=== PATIENT | female | born 1990 | race Caucasian/White ===

== ENCOUNTER 2019-07-26 09:15 | Outpatient (RCR) | payer OTHER, BC, SELFPAY ==
[2019-07-26 11:03] LABS: Hemoglobin 11.4 g/dL (12.0-15.0)
[2019-07-26 11:13] LABS: Glucose 1 Hour PP 50gm Dose 158 mg/dL
[2019-07-26 11:55] LABS: HIV 1/2 Ab P24 Ag Result Negative (Negative)
[2019-07-27] MEDS: RHO(D) IMMUNE GLOBULIN 300 MCG SYRINGE IM (12:33)
[2019-07-29 07:36] LABS: Rapid Plasma Reagin Non-Reactive (NonReactive)
== END 2019-10-24 23:59 | disposition home or self-care (01) ==
LOC: ANHLAB 09:15
PROVIDERS: Visit Provider Advanced Practice Midwife
DX: Z36.89 Encounter for other specified antenatal screening (principal); Z29.13 Encounter for prophylactic Rho(D) immune globulin; O36.0990 Maternal care for other rhesus isoimmunization, unspecified trimester, not applicable or unspecified; Z3A.00 Weeks of gestation of pregnancy not specified
CPT/HCPCS: 36415; 82947; 85014; 85018; 86592; 86703; 86850; 86900; 86901; 90384; 96372; G0432; J2790

== ENCOUNTER 2019-08-26 12:53 | Observation (INO) | payer OTHER, BC, SELFPAY ==
[2019-08-26 13:23] VITALS: BP 150/82; PULSE 130
[2019-08-26 13:30] VITALS: BP 130/79; PULSE 129
[2019-08-26 13:45] VITALS: BP 128/79; PULSE 116
[2019-08-26 14:00] VITALS: BP 127/67; PULSE 108
[2019-08-26 14:15] VITALS: BP 123/72; PULSE 111
[2019-08-26 14:31] LABS: Add Urine Microscopic? NO; Appearance Urine Clear (Clear); Bilirubin Urine Negative (Negative); Blood Urine Negative (Negative); Color Urine Yellow (Yellow); Glucose Urine UA Negative (Negative); Ketones Urine Negative (Negative); Leukocyte Esterase Ur Negative LEU/UL (NEGATIVE); Nitrate Urine Negative (Negative); Protein Urine Negative (Negative); Urobilinogen Urine Negative mg/dL (<2.0)
[2019-08-26 15:29] VITALS: BMI 43.4
--- NOTE | 2019-08-26 15:29 | OBADM ---
This patient, Ashley Vincent I, admitted to the OB room OB Post 115 for observation. Patient/family oriented to hospital policies and general routines including ID bracelet, bed and alarms, visiting hours, pain management, procedures, bathroom and other care routines, personal items, smoking policy, room service/diet, and visiting hours. Patient/Family are encouraged to report perceived risks to care and to ask questions if they do not understand what they are told or what they should do.
--- NOTE | 2019-08-26 15:35 | PC.NURSE ---
1509-K.Cecy CNM called, read UA results and informed no contractions noted. Pt states shes only felt a couple cramps since shes been here. Discharge order received. Perform SVE prior to discharge.
--- NOTE | 2019-08-26 15:38 | PC.NURSE ---
1513-SVE was closed and thick
--- NOTE | 2019-09-08 19:06 | P.PNOB_ITS ---
OB - Triage/Final Diagnosis Evaluation Laboratory results: Laboratory Tests 08/26/19 14:21 Urine Color Yellow Urine Appearance Clear Urine pH 7.0 Ur Specific [place] 1.010 Urine Protein Negative Urine Glucose (UA) Negative Urine Ketones Negative Ur Blood (Man) Negative Urine Nitrate Negative Urine Bilirubin Negative Urine Urobilinogen Negative Ur Leukocyte Esterase Negative Final Diagnosis (1) False labor: Code(s): O47.9 - False labor, unspecified Status: Acute
== END 2019-08-26 15:27 | disposition home or self-care (01) ==
PROVIDERS: Advanced Practice Midwife; Admitting Provider Obstetrics & Gynecology; Visit Provider Obstetrics & Gynecology
DX: O47.03 False labor before 37 completed weeks of gestation, third trimester (principal); Z3A.33 33 weeks gestation of pregnancy
CPT/HCPCS: 81003; 87086; 87088; G0378; G0379

== ENCOUNTER 2019-08-29 20:08 | Observation (INO) | payer OTHER, BC, SELFPAY ==
--- NOTE | 2019-08-29 20:08 | PC.NURSE ---
This patient, Ashley Vincent I, admitted to the OB room Labor/Delivery/Recovery 108 for observation. Patient/family oriented to hospital policies and general routines including ID bracelet, bed and alarms, visiting hours, pain management, procedures, bathroom and other care routines, personal items, smoking policy, room service/diet, and visiting hours. Patient/Family are encouraged to report perceived risks to care and to ask questions if they do not understand what they are told or what they should do.
--- NOTE | 2019-08-29 20:30 | PC.NURSE ---
No ferning noted while visualizing slide under microscope.
--- NOTE | 2019-08-29 20:56 | PC.NURSE ---
Dr. Sy notified of patient complaint of possible leaking of fluid. Vaginal discharge collected through speculum exam and applied to slide. No ferning noted when visualized under microscope. FHT reactive and active movement visible. No contractions noted and patient declines any cramping, contractions or abdominal tightening. VSS. Order for discharge received. Patient to follow-up at regular scheduled appointment 08/30/2019 at 0900 with Galina Hernandez CNM.
[2019-08-29 21:03] VITALS: BMI 44.8
[2019-08-29 21:04] VITALS: BP 169/105; PULSE 114; TEMP 36.9
[2019-08-29 21:06] VITALS: BP 125/82; PULSE 116
[2019-08-29 22:01] VITALS: BP 125/82; PULSE 116
--- NOTE | 2019-09-04 07:46 | PM.OBTRLD ---
OB - Triage/Final Diagnosis Visit Information Date of evaluation: 08/29/19 Reason for evaluation: threatened labor
== END 2019-08-29 21:15 | disposition home or self-care (01) ==
PROVIDERS: Admitting Provider Obstetrics & Gynecology; Visit Provider Obstetrics & Gynecology
DX: O47.03 False labor before 37 completed weeks of gestation, third trimester (principal); Z3A.33 33 weeks gestation of pregnancy
CPT/HCPCS: 59025; G0378; G0379

== ENCOUNTER 2019-10-07 00:01 | Inpatient (IN) | payer OTHER, BC, SELFPAY ==
[2019-10-07] VITALS (103 sets, daily range): BP systolic 114–141; BP diastolic 47–81; PULSE 74–122; RESP 18–20; TEMP 36.8–37.3; O2SAT 96–100; BMI 46.6
--- NOTE | 2019-10-07 00:01 | LDADM ---
This patient, Ashley Bosch I, was admitted to Labor/Delivery/Recovery 108 on 10/07/19 at 00:01. Plans for labor, pain management and were discussed with patient. Patient/family oriented to hospital policies and general routines including ID bracelet, bed and alarms, visiting hours, pain management, procedures, bathroom and other care routines, personal items, smoking policy, room service/diet and guest tray routines, security routines, and visiting hours. Patient/Family are encouraged to report perceived risks to care and to ask questions if they do not understand what they are told or what they should do. See OBIX for further documentation.
[2019-10-07] MEDS: DINOPROSTONE 10 MG VAG INSERT VAGINAL (00:54)
[2019-10-07 00:59] LABS: Basophils Absolute Auto 0.1 K/mm3 (0.0-0.1); Basophils Percent Auto 0.4 % (0.2-1.2); Eosinophils Absolute Auto 0.3 K/mm3 (0-0.3); Eosinophils Percent Auto 2.6 % (0-4.4); Hematocrit 35.6 % (37.0-47.0); Hemoglobin 11.5 g/dL (12.0-15.0); Immature Granulocyte Absolute 0.06 K/mm3 (0.00-0.031); Immature Granulocyte Percent A 0.5 % (0-0.5); Lymphocytes Absolute Auto 2.37 K/mm3 (0.9-3.2); Lymphocytes Percent Auto 19.7 % (18.3-44.2); Mean Corpuscular HGB Conc 32.3 g/dl (32-36); Mean Corpuscular Hemoglobin 26.3 pg (26-34); Mean Corpuscular Volume 81.3 fl (80-100); Mean Platelet Volume 9.4 fl (7.4-10.4); Monocytes Absolute Auto 1.1 K/mm3 (0.1-0.6); Monocytes Percent Auto 8.8 % (2.6-8.5); Neutrophils Absolute Auto 8.2 K/mm3 (1.3-6.7); Platelet Count Result 406 k/mm3 (150-375); Red Blood Count 4.38 M/mm3 (4.2-5.4); Red Cell Distribution Width 15.2 % (11.5-14.5)
--- NOTE | 2019-10-07 04:58 | WPDANESEPP ---
Anes - Eval Pre Procedure Procedure: Labor epidural Date/Time: 10/07/19 04:58 Surgeon: Taniya Preop Diagnosis: Labor pain Pre Op Diagnosis: IOL Patient Data Age: 28 Gender: F Height: 1.8 m Weight: 151.8 kg Last Vital Signs Temp 37.1 C 10/07/19 03:00 Pulse 92 10/07/19 03:00 Resp 18 10/07/19 03:00 BP 123/61 10/07/19 03:00 Allergies Allergy/AdvReac Type Severity Reaction Status Date / Time carbinoxamine [From [facility]] Allergy Hives Verified 10/07/19 01:53 pseudoephedrine [From [facility]] Allergy Hives Verified 10/07/19 01:53 sulfamethoxazole Allergy Hives Verified 08/29/19 21:06 [From [facility]] trimethoprim [From [facility]] Allergy Hives Verified 08/29/19 21:06 Home Medications Medication Instructions Recorded Confirmed Type budesonide-formoterol [Symbicort] 2 puff INHALATION Q12H 10/07/19 10/07/19 History cholecalciferol (vitamin D3) 50 mcg PO DAILY 10/07/19 10/07/19 History [Vitamin D3] levothyroxine 137 mcg PO DAILY 10/07/19 10/07/19 History no.144-folic acid 144 mcg PO DAILY 10/07/19 10/07/19 History [] Laboratory Tests 10/07/19 10/07/19 10/07/19 00:46 00:46 00:46 WBC 12.0 K/mm3 H K/mm3 (4.5-10.0) RBC 4.38 M/mm3 M/mm3 (4.2-5.4) Hgb 11.5 g/dL L g/dL (12.0-15.0) Hct 35.6 % L % (37.0-47.0) MCV 81.3 fl fl (80-100) MCH 26.3 pg pg (26-34) MCHC 32.3 g/dl g/dl (32-36) RDW 15.2 % H % (11.5-14.5) Plt Count 406 k/mm3 H k/mm3 (150-375) MPV 9.4 fl fl (7.4-10.4) Immature Gran % (Auto) 0.5 % % (0-0.5) Neut % (Auto) 68.0 % % (45.5-73.1) Lymph % (Auto) 19.7 % % (18.3-44.2) [place] % (Auto) 8.8 % H % (2.6-8.5) Eos % (Auto) 2.6 % % (0-4.4) Baso % (Auto) 0.4 % % (0.2-1.2) Lymph # (Auto) 2.37 K/mm3 K/mm3 (0.9-3.2) [place] # (Auto) 1.1 K/mm3 H K/mm3 (0.1-0.6) Eos # (Auto) 0.3 K/mm3 K/mm3 (0-0.3) Baso # (Auto) 0.1 K/mm3 K/mm3 (0.0-0.1) Abs Immat Gran (auto) 0.06 K/mm3 H K/mm3 (0.00-0.031) Absolute Neuts (auto) 8.2 K/mm3 H K/mm3 (1.3-6.7) Absolute Nucleated RBC 0.0 K/mm3 K/mm3 (0.0-0.012) Nucleated RBC % 0.0 % % (0.0-0.2) RPR Pending Blood Type O Negative Antibody Screen Negative Patient hx anesthesia problems: none Family hx anesthesia problems: none [facility] Past Medical History Medical History (Updated 10/07/19 @ 04:59 by Fidelia Mock CRNA) Hypothyroid Morbid obesity with BMI of 60.0-69.9, adult Family History Family History (Updated 10/07/19 @ 01:20 by Griselda Boudreaux RN) Sibling Asthma Mother Graves disease Social History Social History Smoking status: Never smoker Substance use: never Gender identity (if verbalized by the patient): Female Spiritual care concerns: No Exam Day of Procedure 10/07/19 04:58
[2019-10-07 07:40] LABS: Rapid Plasma Reagin Non-Reactive (NonReactive)
--- NOTE | 2019-10-07 13:34 | P.HP_ITS ---
Obstetrics - Admit Note Admission Note: record reviewed. No pertinent additions to the history and/or any subsequent changes in the physical findings that are not consistent with the expected course of the were found. MIL for BMI over 30. cervadil and now plan high dose pitocin, attempted AROM unsuccessful. SVE /- 2 Additions to the history and/or subsequent changes in the physical findings follow. None.
[2019-10-07] MEDS: OXYTOCIN 30 UNITS/NS 500 ML 30 UNITS/500 ML BAG 6 UNITS IV CONT (14:09)
[2019-10-07] MEDS: LACTATED RINGERS 1,000 ML 125 ML IV CONT ×3 (14:09→20:37)
[2019-10-08] VITALS (40 sets, daily range): BP systolic 110–135; BP diastolic 47–99; PULSE 32–156; RESP 16–18; TEMP 36.3–37.6; O2SAT 79–100
[2019-10-08] MEDS: OXYTOCIN 30 UNITS/NS 500 ML 30 UNITS/500 ML BAG 125 UNITS IV CONT (02:09)
--- NOTE | 2019-10-08 02:10 | PM.OBPRVD ---
OB - Delivery Note Procedure Delivery date: 10/08/19 Intrapartal events: None Induction method: AROM and per pitocin protocol Delivery monitor: external FHT and external uterine Laceration description: Perineal - 2nd Degree Delivery repair: vicryl Specimen: No Estimated blood loss (mL): 265 Anesthesia type: Epidural Disposition: other () Narrative: baby to skin, mother and baby in stable condition [place] Baby Date of : 10/08/19 Time of : 01:46 Weeks of gestation at delivery: 39 Infant gender: Female Weight (pounds): 6 Weight (ounces): 9 presentation: vertex position: Transverse Placenta delivery description: Spontaneous cord vessel description: 3 Vessels, Tight and Clamped/Cut score one minute: 8 score five minutes: 9
[2019-10-08] MEDS: WITCH HAZEL 40 PADS 1 PAD TOPICAL (04:24)
[2019-10-08] MEDS: BENZOCAINE 20% AER SPR (*SP) 56 GM CAN 1 SPRAY TOPICAL (04:24)
[2019-10-08] MEDS: IBUPROFEN 600 MG TABLET PO ×2 (04:27→13:55)
--- NOTE | 2019-10-08 04:38 | OBPPTRN ---
Patient transferred to post room #286 via wheelchair. Support person, Huy, present. Oriented to unit, room, information board, rooming in, admission packet and security measures. Patient verbalizes understanding.
[2019-10-08] MEDS: LEVOTHYROXINE SODIUM 25 MCG TABLET PO (05:58)
[2019-10-08] MEDS: LEVOTHYROXINE SODIUM 112 MCG TABLET PO (05:58)
[2019-10-08] MEDS: CHOLECALCIFEROL 1,000 UNIT TABLET 2000 UNITS PO (07:20)
[2019-10-08] MEDS: MULTIVIT/MIN/PREN/FOL AC/IRON TABLET 1 TAB PO (07:21)
[2019-10-08] MEDS: ACETAMINOPHEN 325 MG TABLET 650 MG PO (07:21)
[2019-10-08] MEDS: DOCUSATE SODIUM 100 MG CAPSULE PO (07:21)
[2019-10-08] MEDS: TETANUS,DIPHTHERIA,AC PERTUSSIS ADULT (0.5 ML) BOOSTRIX IM (13:56)
[2019-10-09] MEDS: ACETAMINOPHEN 325 MG TABLET 650 MG PO (00:59)
[2019-10-09] MEDS: IBUPROFEN 600 MG TABLET PO ×2 (00:59→08:10)
[2019-10-09 05:11] LABS: Hematocrit 30.9 % (37.0-47.0); Hemoglobin 9.7 g/dL (12.0-15.0)
--- NOTE | 2019-10-09 07:21 | PM.OBPNVD ---
OB - PN: Subj Subjective Date/time seen: 10/09/19 07:21 Patient comments: no complaints baby status: doing well [place] feeding status: exclusively breast feeding OB - PN: Obj Data Labs CBC & Chem 7: 10/09/19 04:41 Labs: Laboratory Results - last 24 hr 10/09/19 04:41 Hgb 9.7 L Hct 30.9 L OB - PN A/P Plan day: 1 Plan: routine care Time Spent With Patient Time: Total time spent is greater than 50% in coordination of care (as documented) at patient's floor/unit and/or counseling patient: Review of Systems Review of Systems: All systems reviewed & are unremarkable except as noted in HPI and below Constitutional: Constitutional: Reports as per HPI Cardiovascular: Cardiovascular: Reports as per HPI Exam Const: General: comfortable Resp: Effort & Inspection: normal respiratory effort Psych: Appearance: grossly normal Affect: normal affect Attitude: cooperative
--- NOTE | 2019-10-09 07:22 | P.DS_ITS ---
OB - DS: Summary OB Procedures : None OB Procedures Intrapartum: Spontaneous Vag Delivery OB Procedures: : None Time Spent with Patient Time attestation: Total time spent providing and/or coordinating discharge services: Exam Const: General: comfortable Resp: Effort & Inspection: normal respiratory effort GI: GI Palp: Yes Soft to palpation Psych: Appearance: grossly normal Affect: normal affect Attitude: cooperative Thought content: Yes Normal thought content present DS: Data Data Completed and Pending Labs on day of discharge: Labs from last 24 hours 10/09/19 04:41 Hgb 9.7 L Hct 30.9 L Discharge Plan Discharge Attending physician on discharge: Sam Monahan Discharging Clinician: Shayla Hernandez Patient Disposition: Home, Self-Care Activity: pelvic rest Diet: regular Patient Instructions: Antibiotic Form Stand Alone Forms: General Discharge Information Follow-up/Referrals: Shayla Hernandez, CNM [Certified Nurse Business Analytics Analyst] - Discharge Medications: Continued levothyroxine 137 mcg tablet 137 mcg PO DAILY RF: 0 budesonide-formoterol [Symbicort] 160-4.5 mcg/actuation Hfa Aerosol Inhaler 2 puff INHALATION Q12H RF: 0 400 mcg Tablet,Chewable 144 mcg PO DAILY RF: 0 cholecalciferol (vitamin D3) [Vitamin D3] 50 mcg (2,000 unit) Capsule 50 mcg PO DAILY RF: 0 Date of admission: 10/07/19 00:01 Primary Care Provider: UNKNOWN,DOCTOR Admitting Provider: Sam Monahan Attending physician on admission: Sam Monahan
[2019-10-09 08:00] VITALS: BP 124/87; PULSE 86; RESP 14; TEMP 36.2; O2SAT 100
[2019-10-09] MEDS: MULTIVIT/MIN/PREN/FOL AC/IRON TABLET 1 TAB PO (08:10)
[2019-10-09] MEDS: DOCUSATE SODIUM 100 MG CAPSULE PO (08:10)
[2019-10-09] MEDS: POLYSACCHARIDE IRON COMPLEX 150 MG CAPSULE PO (08:10)
[2019-10-10 10:34] VITALS: BP 128/86; PULSE 98; RESP 16; TEMP 37.1; O2SAT 98
== END 2019-10-09 12:32 | disposition home or self-care (01) | DRG 807 ==
LOC: ANHLDR 00:46 → ANHOB2 10-08 05:11
PROVIDERS: Advanced Practice Midwife; Admitting Provider Obstetrics & Gynecology; Visit Provider Obstetrics & Gynecology
DX: O69.1XX0 Labor and delivery complicated by cord around neck, with compression, not applicable or unspecified (principal); Z37.0 Single live birth; Z3A.39 39 weeks gestation of pregnancy; Z23 Encounter for immunization; O70.1 Second degree perineal laceration during delivery
CPT/HCPCS: 36415; 84112; 85014; 85018; 85025; 86592; 86850; 86900; 86901; 90715; A9270; J2590; J2795; J7120

== ENCOUNTER → 2020-06-08 10:29 | Outpatient (CLI) | payer OTHER, BC, SELFPAY ==
--- NOTE | ~2020-06-08 | US_ITS ---
EXAMINATION: US thyroid DATE: 06/08/2020 11:22 INDICATION: Thyroid nodule. TECHNIQUE: Multiple ultrasound images of the thyroid were obtained. COMPARISON: Ultrasound 01/22/2019, 01/02/2012, 01/05/2014 FINDINGS: The right thyroid lobe measures 6.1 x 1.8 x 1.7 cm. The left thyroid lobe measures 6.4 x 1.7 x 2.2 c m. The thyroid demonstrates diffusely heterogeneous echogenicity, stable from 01/02/2012. Vascularity is normal. No discrete nodule. IMPRESSION: 1. Chronically heterogeneous thyroid, likely chronic lymphocytic (Camilo) thyroiditis. Reviewed, dictated and finalized at location A. M PRESS TENDER IMPRESSION: 1. Chronically heterogeneous thyroid, likely chronic lymphocytic (Camilo) th yroiditis.
== END ==
PROVIDERS: PCP Nurse Practitioner; Visit Provider Nurse Practitioner
DX: E04.1 Nontoxic single thyroid nodule (principal); E03.9 Hypothyroidism, unspecified
CPT/HCPCS: 76536

== ENCOUNTER 2021-03-19 07:07 | Outpatient (RCR) | payer OTHER, BC, SELFPAY ==
[2021-03-19 08:49] LABS: Hematocrit 34.8 % (37.0-47.0); Hemoglobin 11.2 g/dL (12.0-15.0)
[2021-03-19 09:06] LABS: Glucose 1 Hour PP 50gm Dose 157 mg/dL
[2021-03-19 11:04] LABS: Rapid Plasma Reagin Non-Reactive (NonReactive)
[2021-03-22 12:14] LABS: HIV 1/2 Ab P24 Ag Result Negative (Negative)
[2021-03-22] MEDS: RHO(D) IMMUNE GLOBULIN 300 MCG/2 ML SYRINGE IM (16:53)
== END 2021-06-17 23:59 | disposition home or self-care (01) ==
LOC: ANHLAB 07:07
PROVIDERS: PCP Nurse Practitioner; Visit Provider Obstetrics & Gynecology
DX: Z11.4 Encounter for screening for human immunodeficiency virus [HIV] (principal); O36.0190 Maternal care for anti-D [Rh] antibodies, unspecified trimester, not applicable or unspecified; Z3A.00 Weeks of gestation of pregnancy not specified
CPT/HCPCS: 36415; 82947; 85014; 85018; 85461; 86592; 86703; 90384; 96372; G0432; J2790

== ENCOUNTER 2021-04-07 07:33 | Outpatient (CLI) | payer OTHER, BC, SELFPAY ==
--- NOTE | ~2021-04-07 | US_ITS ---
EXAMINATION: US OB limited DATE: 04/07/2021 08:34 INDICATION: Leakage of fluid in third trimester. TECHNIQUE: Real-time ultrasound of the pelvis was performed. COMPARISON: None. FINDINGS: There is a single fetus in vertex presentation. The placenta is posterior, 11.2 cm from the cervix. heart rate is 134 beats per minute (bpm). The amniotic fluid index is 15.9 cm, which is normal. IMPRESSION: 1. Single living fetus in vertex presentation. 2. Normal amniotic fluid index. Reviewed, dictated and finalized at location A.
[2021-04-07 08:01] VITALS: BP 136/74; PULSE 109
[2021-04-07 08:10] VITALS: BP 136/74; PULSE 105
--- NOTE | 2021-04-07 08:41 | PC.NURSE ---
0840- SPoke with Galina Hernandez, RENNY, MACHO normal, ROM plus negative. ORders to discharge to home.
== END 2021-04-07 08:41 | disposition home or self-care (01) ==
LOC: ANHOBOP 07:40 → ANHOBPP 04-12 07:50
PROVIDERS: PCP Nurse Practitioner; Referring Provider Advanced Practice Midwife; Visit Provider Advanced Practice Midwife
DX: O42.90 Premature rupture of membranes, unspecified as to length of time between rupture and onset of labor, unspecified weeks of gestation (principal); Z3A.00 Weeks of gestation of pregnancy not specified
CPT/HCPCS: 59025; 76815; 84112; 99199

== ENCOUNTER 2021-05-17 06:28 | Outpatient (CLI) | payer OTHER, BC, SELFPAY ==
[2021-05-17] VITALS (28 sets, daily range): BP systolic 111–131; BP diastolic 69–79; PULSE 87–124; O2SAT 93–100
[2021-05-17] MEDS: TERBUTALINE SULFATE 1 MG/ML VIAL 0.25 MG SUB-Q (07:12)
--- NOTE | 2021-05-17 07:46 | W.PM.PROC2 ---
Procedure Note - Detailed Date of Procedure 05/17/21 Pre-op Diagnosis External Version, breech presentation, 36 weeks gestation Post-op Diagnosis same Procedure Performed external cephalic version -failed Surgeon Sam Monahan MD Anesthesia none Indications breech presentation Findings the breech presentation was firmly and deeply in the pelvis. position was confirmed with ultrasound. Attempt at external cephalic version was made. Attempted to raise the presenting part out of the pelvis. Could not raise the presenting part. After several times the patient wanted to discontinue the procedure. Description of Procedure IV access was gained. Terbutaline was given. Estimated Blood Loss 0 Drains No Packing No Pathology none sent Complications No immediate complications Condition stable
[2021-05-17] MEDS: RHO(D) IMMUNE GLOBULIN 300 MCG/2 ML SYRINGE IM (08:55)
== END 2021-05-17 09:37 | disposition home or self-care (01) ==
LOC: ANHOBOP 06:31 → ANHOBPP 06:35
PROVIDERS: PCP Nurse Practitioner; Visit Provider Obstetrics & Gynecology
DX: O32.1XX0 Maternal care for breech presentation, not applicable or unspecified (principal); Z3A.00 Weeks of gestation of pregnancy not specified
CPT/HCPCS: 36415; 59412; 85461; 90384; 96372; 99199; J2790; J3105

== ENCOUNTER 2021-05-31 10:05 | Inpatient (IN) | payer OTHER, BC, SELFPAY ==
[2021-05-31] VITALS (61 sets, daily range): BP systolic 78–148; BP diastolic 32–97; PULSE 56–116; RESP 15–18; TEMP 36.2–36.6; O2SAT 92–100; BMI 47.5
--- OUTSIDE RECORDS SUMMARY | 2021-05-31 10:14 | XMS_ITS | Encounter Summary ---
:1990 Author Care Team Providers Name Role Phone Fallon Waggoner Primary Care Provider [phone] Reason for Visit None recorded. Assessment and Plan 1. Maternal obesity complicating , childbirth and the puerperium, antepartum ? non-stress test Discussion Note: None recorded.Patient educational handouts: No information available. Plan of Care Reminders Provider Appointments Surg 06/09/2021 Shayla roca, Post Op 8:45AM CNM ? Well on or around Shayla roca, Woman-est 10/26/2021 CNM Lab None ? ? recorded. Referral None ? ? recorded. Procedures None ? ? recorded. Surgeries None ? ? recorded. Imaging 05/28/2021 [place] Non-stress Test Medications Name Start Date ? ? budesonide-formoterol HFA 160 mcg-4.5 mcg/actuation ae rosol inhaler ? TAKE 2 PUFFS BY MOUTH TWICE A DAY COVID-19 test specimen collection ? TEST DIRECTED TODAY levothyroxine 137 mcg tablet ? ondansetron HCl 4 mg tablet ? TAKE 1 TABLET BY MOUTH EVERY 4 TO 6 HOURS NEEDED Symbicort 80 mcg-4.5 mcg/actuation HFA aerosol inhaler ? INHALE 2 PUFFS INTO THE LUNGS TWICE DAILY Vitamin D ? Medications Administered None recorded. Vitals None recorded. Results
--- OUTSIDE RECORDS SUMMARY | 2021-05-31 10:14 | XMS_ITS | Encounter Summary ---
:1990 Author Care Team Providers Name Role Phone Fallon Waggoner Primary Care Provider [phone] Reason for Visit None recorded. Assessment and Plan 1. Maternal obesity complicating , childbirth and the puerperium, antepartum ? US, obstetric, biophysical profile + non-stress test Discussion Note: None recorded.Patient educational handouts: No information available. Plan of Care Reminders Provider Appointments Surg Post Op 06/09/2021 [facility] Ellie 8:45AM RENNY Hernandez ? Well on or around Shayal Argueta Woman-est 10/26/2021 RENNY Hernandez Lab None ? ? recorded. Referral None ? ? recorded. Procedures None ? ? recorded. Surgeries None ? ? recorded. Imaging US, 05/25/2021 [place] [facility], Biophysical Profile + Non-stress Test Medications Name Start Date ? [...]
--- OUTSIDE RECORDS SUMMARY | 2021-05-31 10:14 | XMS_ITS ---
:1990 Author Care Team Providers Name Role Phone DIEGO CORONEL Primary Care Provider [phone] Allergies Code Code System Name Reaction Severity Status Onset Rondec ? ? Active ? Sulfa (Sulfonamide ? ? Active ? Antibiotics) 93069 RxNorm Sulfamethoxazole ? ? Active ? 67325 RxNorm Trimethoprim ? ? Active ? Medications Name Status Start Date Stop Date ? ? Advair Diskus 100 mcg-50 mcg/dose powder for inhalation Complete d ? 11/23/2018 inhale 1 puff by inhalation route 2 meche es every day in the morning and evening approximately 12 hours apart albuterol sulfate Completed ? 10/30/2020 albuterol sulfate HFA 90 mcg/actuation aerosol inhaler Completed ? 03/19/2021 inhale 2 puff by inhalation route 4 - 6 hours as needed Azo 95 mg tablet Completed ? 10/07/2011 budesonide-formoterol HFA 160 mcg-4.5 mcg/actuation aerosol inha ler Active ? Not available TAKE 2 PUFFS BY MOUTH TWICE A DAY COVID-19 test specimen collection Active ? Not available TEST DIRECTED TODAY Cytotec 200 mcg tablet Completed 12/14/2018 Insert all 4 pills by vaginal route once dicloxacillin 500 mg capsule Completed ? Take 1 capsule every 12 hours by oral route for 10 days. ID NOW COVID-19 Test Kit Completed ? 021 TEST DIRECTED levothyroxine Completed ? 10/30/2020 levothyroxine 137 mcg tablet Active ? Not available levothyroxine 25 mcg tablet Completed ? 11/17 take 1 tablet
--- OUTSIDE RECORDS SUMMARY | 2021-05-31 10:14 | XMS_ITS | Encounter Summary ---
:1990 Author Care Team Providers Name Role Phone Fallon Waggoner Primary Care Provider [phone] Reason for Visit OB visit OB [id number] EDC 06/06/2021 LMP 10/03/2020 Assessment and Plan Assessment Note Patient is _38__weeks . Dis cussed plan. 1. Routine care Discussion Note: None recorded.Patient educational handouts: No information available. Plan of Care Reminders Provider Appointments Surg 06/09/2021 Shayla roca, Post Op 8:45AM CNM ? Well on or around Shayla roca, Woman-est 10/26/2021 CNM Lab None ? ? recorded. Referral None ? ? recorded. Procedures None ? ? recorded. Surgeries None ? ? recorded. Imaging None ? ? recorded. Medications Name Start Date ? ? budesonide-formoterol [...] D ? Medications Administered None recorded. Vitals Height Weight BMI
--- OUTSIDE RECORDS SUMMARY | 2021-05-31 10:14 | XMS_ITS | Encounter Summary ---
:1990 Author Care Team Providers Name Role Phone Fallon Waggoner Primary Care Provider [phone] Reason for Visit None recorded. Assessment and [...] recorded. Surgeries None ? ? recorded. Imaging 05/25/2021 [place] Non-stress Test Medications Name Start Date ? [...]
--- OUTSIDE RECORDS SUMMARY | 2021-05-31 10:14 | XMS_ITS | Encounter Summary ---
:1990 Author Care Team Providers Name Role Phone Fallon Waggoner Primary Care Provider [phone] Reason for Visit None recorded. Assessment and Plan 1. Maternal obesity complicating , childbirth and the puerperium, antepartum ? US, obstetric, biophysical profile + non-stress test Discussion Note: None recorded.Patient educational handouts: No information available. Plan of Care Reminders Provider Appointments Surg Post Op 06/09/2021 [facility] Ellie 8:45AM RENNY Hernandez ? Well on or around Shayla Argueta Woman-est 10/26/2021 RENNY Hernandez Lab None ? ? recorded. Referral None ? ? recorded. Procedures None ? ? recorded. Surgeries None ? ? recorded. Imaging US, 05/28/2021 [place] Obstetric, Biophysical Profile + Non-stress Test Medications [...]
--- OUTSIDE RECORDS SUMMARY | 2021-05-31 10:15 | XMS_ITS | Encounter Summary ---
:1990 Author Care Team Providers Name Role Phone Fallon Waggoner Primary Care Provider [phone] Reason for Visit None recorded. Assessment and Plan None recorded.Discussion Note: None recorded.Patient educational handouts: No information [...] Administered None recorded. Vitals None recorded. Results Lab Results None recorded. Allergies Code Code System Name Reaction Severity Onset Rondec ? ?
--- OUTSIDE RECORDS SUMMARY | 2021-05-31 10:15 | XMS_ITS | Encounter Summary ---
:1990 Author Care Team Providers Name Role Phone Fallon Waggoner Primary Care Provider [phone] Reason for Visit None recorded. Assessment and [...] recorded. Surgeries None ? ? recorded. Imaging 05/21/2021 [place] Non-stress Test Medications Name Start Date ? [...]
--- OUTSIDE RECORDS SUMMARY | 2021-05-31 10:15 | XMS_ITS | Encounter Summary ---
:1990 Author Care Team Providers Name Role Phone Fallon Waggoner Primary Care Provider [phone] Reason for Visit None recorded. Assessment and [...] recorded. Surgeries None ? ? recorded. Imaging 04/23/2021 [place] Non-stress Test Medications Name Start Date ? [...]
--- OUTSIDE RECORDS SUMMARY | 2021-05-31 10:15 | XMS_ITS | Encounter Summary ---
:1990 Author Care Team Providers Name Role Phone Fallon Waggoner Primary Care Provider [phone] Reason for Visit OB visit [id number] EDC 06/06/2021 LMP 10/03/2020 Assessment and Plan Assessment Note Patient is 37___weeks . Dis cussed plan. 1. Routine care [...]
--- OUTSIDE RECORDS SUMMARY | 2021-05-31 10:15 | XMS_ITS | Encounter Summary ---
:1990 Author Care Team Providers Name Role Phone Fallon Waggoner Primary Care Provider [phone] Reason for Visit None recorded. Assessment and Plan 1. Maternal obesity complicating , childbirth and the puerperium, antepartum ? US, obstetric, biophysical profile + non-stress test Discussion Note: None recorded.Patient educational handouts: No information available. Plan of Care Reminders Provider Appointments Surg Post Op 06/09/2021 [facility] Ellie 8:45AM RENNY Hernandez ? Well on or around Shayla Argueta Woman-est 10/26/2021 RENNY Hernandez Lab None ? ? recorded. Referral None ? ? recorded. Procedures None ? ? recorded. Surgeries None ? ? recorded. Imaging US, 04/29/2021 [place] Obstetric, Biophysical Profile + Non-stress Test Medications [...]
--- OUTSIDE RECORDS SUMMARY | 2021-05-31 10:15 | XMS_ITS | Encounter Summary ---
:1990 Author Care Team Providers Name Role Phone Fallon Waggoner Primary Care Provider [phone] Reason for Visit OB visit [id number] Assessment and Plan 1. Routine care Discussion Note: None recorded.Patient [...] Administered None recorded. Vitals Height Weight BMI Blood Pressure 5 ft 9.75 in 345 lbs 49.9 kg/m2 134/84 mm[Hg] Results Lab Results
--- OUTSIDE RECORDS SUMMARY | 2021-05-31 10:15 | XMS_ITS | Encounter Summary ---
:1990 Author Care Team Providers Name Role Phone Fallon Waggoner Primary Care Provider [phone] Reason for Visit None recorded. Assessment and Plan 1. Maternal obesity complicating , childbirth and the puerperium, antepartum ? US, obstetric, biophysical profile + non-stress test Discussion Note: None recorded.Patient educational handouts: No information available. Plan of Care Reminders Provider Appointments Surg Post Op 06/09/2021 [facility] Ellie 8:45AM RENNY Hernandez ? Well on or around Shayla Argueta Woman-est 10/26/2021 RENNY Hernandez Lab None ? ? recorded. Referral None ? ? recorded. Procedures None ? ? recorded. Surgeries None ? ? recorded. Imaging US, 05/07/2021 [place] Obstetric, Biophysical Profile + Non-stress Test Medications [...]
--- OUTSIDE RECORDS SUMMARY | 2021-05-31 10:15 | XMS_ITS | Encounter Summary ---
:1990 Author Care Team Providers Name Role Phone Fallon Waggoner Primary Care Provider [phone] Reason for Visit OB visit OB [id number] EDC 06/06/2021 LMP 10/03/2020 Assessment and Plan Assessment Note Patient is __35_weeks . Dis cussed plan. 1. Routine care [...]
--- OUTSIDE RECORDS SUMMARY | 2021-05-31 10:15 | XMS_ITS | Encounter Summary ---
:1990 Author Care Team Providers Name Role Phone Fallon Waggoner Primary Care Provider [phone] Reason for Visit None recorded. Assessment and Plan 1. Maternal obesity complicating , childbirth and the puerperium, antepartum ? US, obstetric, biophysical profile + non-stress test ? US, obstetric, follow-up Discussion Note: None recorded.Patient educational handouts: No information available. Plan of Care Reminders Provider Appointments Surg Post Op 06/09/2021 [facility] Ellie 8:45AM RENNY Hernandez ? Well on or around Shayla Argueta Woman-est 10/26/2021 RENNY Hernandez Lab None ? ? recorded. Referral None ? ? recorded. Procedures None ? ? recorded. Surgeries None ? ? recorded. Imaging US, 04/23/2021 [place] Obstetric, Biophysical Profile + Non-stress Test ? US, 04/23/2021 [place] Obstetric, Follow-up Medications Name Start Date ? ? budesonide-formoterol HFA 160 mcg-4.5 mcg/actuation ae rosol inhaler ? TAKE 2 PUFFS BY MOUTH TWICE A DAY COVID-19 test specimen collection ? TEST DIRECTED TODA
--- OUTSIDE RECORDS SUMMARY | 2021-05-31 10:15 | XMS_ITS | Encounter Summary ---
:1990 Author Care Team Providers Name Role Phone Fallon Waggoner Primary Care Provider [phone] Reason for Visit None recorded. Assessment and Plan 1. Maternal obesity complicating , childbirth and the puerperium, antepartum ? US, obstetric, follow-up ? US, obstetric, biophysical profile + non-stress test Discussion Note: None recorded.Patient educational handouts: No information available. Plan of Care Reminders Provider Appointments Surg Post Op 06/09/2021 Ellie 8:45AM RENNY Hernandez ? Well on or around Sh[facility] 10/26/2021 RENNY Hernandez Lab None ? ? recorded. Referral None ? ? recorded. Procedures None ? ? recorded. Surgeries None ? ? recorded. Imaging US, 05/21/2021 [place] [facility], Follow-up ? US, 05/21/2021 [facility], Biophysical Profile + Non-stress Test Medications Name Start Date ? ? budesonide-formoterol HFA 160 mcg-4.5 mcg/actuation ae rosol inhaler ? TAKE 2 PUFFS BY MOUTH TWICE A DAY COVID-19 test specimen collection ? TEST DIRECTED TODA
--- OUTSIDE RECORDS SUMMARY | 2021-05-31 10:15 | XMS_ITS | Encounter Summary ---
:1990 Author Care Team Providers Name Role Phone Fallon Waggoner Primary Care Provider [phone] Reason for Visit None recorded. Assessment and [...] recorded. Surgeries None ? ? recorded. Imaging 05/07/2021 [place] Non-stress Test Medications Name Start Date ? [...]
--- OUTSIDE RECORDS SUMMARY | 2021-05-31 10:15 | XMS_ITS | Encounter Summary ---
:1990 Author Care Team Providers Name Role Phone Fallon Waggoner Primary Care Provider [phone] Reason for Visit None recorded. Assessment and Plan 1. Maternal obesity complicating , childbirth and the puerperium, antepartum ? US, obstetric, biophysical profile + non-stress test Discussion Note: None recorded.Patient educational handouts: No information available. Plan of Care Reminders Provider Appointments Surg Post Op 06/09/2021 [facility] Ellie 8:45AM RENNY Hernandez ? Well on or around [facility] 10/26/2021 RENNY Hernandez Lab None ? ? recorded. Referral None ? ? recorded. Procedures None ? ? recorded. Surgeries None ? ? recorded. Imaging US, 05/12/2021 [facility], Biophysical Profile + Non-stress Test Medications [...]
--- OUTSIDE RECORDS SUMMARY | 2021-05-31 10:15 | XMS_ITS | Encounter Summary ---
:1990 Author Care Team Providers Name Role Phone Fallon Waggoner Primary Care Provider [phone] Reason for Visit None recorded. Assessment and [...] recorded. Surgeries None ? ? recorded. Imaging 05/12/2021 [place] Non-stress Test Medications Name Start Date ? [...]
--- OUTSIDE RECORDS SUMMARY | 2021-05-31 10:15 | XMS_ITS | Encounter Summary ---
:1990 Author Care Team Providers Name Role Phone Fallon Waggoner Primary Care Provider [phone] Reason for Visit OB visit OB [id number] EDC 06/06/2021 L[facility] 10/03/2020 Assessment and Plan 1. Hypothyroidism 2. Maternal obesity complicating , childbirth and the puerperium, antepartum Discussion Note: None recorded.Patient educational handouts: No [...]
--- OUTSIDE RECORDS SUMMARY | 2021-05-31 10:15 | XMS_ITS | Encounter Summary ---
:1990 Author Care Team Providers Name Role Phone Fallon Waggoner Primary Care Provider [phone] Reason for Visit OB visit OB [id number] EDC 06/06/2021 LMP Assessment and Plan Assessment Note Patient is __36_weeks . Dis cussed plan. 1. Routine care [...]
--- OUTSIDE RECORDS SUMMARY | 2021-05-31 10:16 | XMS_ITS | Encounter Summary ---
:1990 Author Care Team Providers Name Role Phone Fallon Waggoner Primary Care Provider [phone] Reason for Visit OB visit OB [id number] EDC 06/06/2021 LMP 10/03/2020 Assessment and Plan Assessment Note Patient is _28__weeks . Dis cussed plan. 1. Routine care [...]
--- OUTSIDE RECORDS SUMMARY | 2021-05-31 10:16 | XMS_ITS | Encounter Summary ---
:1990 Author Care Team Providers Name Role Phone Fallon Waggoner Primary Care Provider [phone] Reason for Visit OB visit OB [id number] EDC 06/06/2021 LMP 10/03/2020 Assessment and Plan Assessment Note Patient is _32__weeks . Dis cussed plan. 1. Routine care [...]
--- OUTSIDE RECORDS SUMMARY | 2021-05-31 10:16 | XMS_ITS | Encounter Summary ---
:1990 Author Reason for Visit COVID Vaccine 1st Dose - Pfizer Assessment and Plan 1. Administration of SARS-CoV-2 antigen vaccine ? [employer] COVID-19 V accine (PF) 30 mcg/0.3 mL IM suspension(EUA) Discussion Note: None recorded.Patient educational handouts: No information available. Plan of Care Reminders Provider Appointments None ? ? recorded. Lab None ? ? recorded. Referral None ? ? recorded. Procedures None ? ? recorded. Surgeries None ? ? recorded. Imaging None ? ? recorded. Medications Name Start Date ? ? Antifungal Cream (miconazole) 2 % topical ? APPLY TO THE AFFECTED AREA(S) BY TOPICA L ROUTE 2 TIMES PER DAY IN THEMORNING AND EVENING prior to each feeding, visible residual medication should be removed using oil (eg, olive oil or coconut oil) budesonide-formoterol HFA 160 mcg-4.5 mcg/actuation ae rosol inhaler ? clotrimazole 1 % topical cream ? APPLY EXTERNALLY TO THE AFFECTED AND BERNARDO RROUNDING AREAS TWICE DAILY IN THE MORNING AND IN THE EVENING dicloxacillin 500 mg capsule ? TAKE 1 CAPSULE BY MOUTH EVERY 6 HOURS FOR 14 DAYS levothyroxine 137 mcg tablet ? mupirocin 2 % topical ointment ? APPLY A SMALL AMOUNT TO THE AFFECTED AREA BY TOPICAL ROUTE 3 TIMES PER DAY prior to each feeding, visible residual m
--- OUTSIDE RECORDS SUMMARY | 2021-05-31 10:16 | XMS_ITS | Encounter Summary ---
:1990 Author Care Team Providers Name Role Phone Fallon Waggoner Primary Care Provider [phone] Reason for Visit OB visit OB [id number] EDC 06/06/2021 LMP 10/03/2020 Assessment and Plan Assessment Note Patient is _30__weeks . Dis cussed plan. 1. Routine care [...]
--- OUTSIDE RECORDS SUMMARY | 2021-05-31 10:16 | XMS_ITS ---
:1990 Author Care Team Providers Name Role Phone [facility] Primary Care Provider Unavailable Allergies Code Code System Name Reaction Severity Status Onset NKDA ? Medications Name Status Start Date Stop Date ? ? Antifungal Cream (miconazole) 2 % topical Active ? Not available APPLY TO THE AFFECTED AREA(S) BY TOPICA L ROUTE 2 TIMES PER DAY IN THEMORNING AND EVENING prior to each feeding, visible residual medication should be removed using oil (eg, olive oil or coconut oil) budesonide-formoterol HFA 160 mcg-4.5 Active ? Not available mcg/actuation aerosol inhaler clotrimazole 1 % topical cream Active ? N ot available APPLY EXTERNALLY TO THE AFFECTED AND BERNARDO RROUNDING AREAS TWICE DAILY IN THE MORNING AND IN THE EVENING dicloxacillin 500 mg capsule Active ? Not available TAKE 1 CAPSULE BY MOUTH EVERY 6 HOURS FOR 14 DAYS levothyroxine 137 mcg tablet Active ? Not available mupirocin 2 % topical ointment Active ? N ot available APPLY A SMALL AMOUNT TO THE AFFECTED AREA BY TOPICAL ROUTE 3 TI MES PER DAY prior to each feeding, visible residual medication should be removed using oil (eg, olive oil or coconut oil) Symbicort 80 mcg-4.5 mcg/actuation HFA aerosol inhaler Active ? Not available INHALE 2 PUFFS INTO THE LUNGS TWICE DAILY Problems No Known Problems Procedures None recorded. Results Lab Results Date Name Specimen Result Interpretation Description Value Range Status Address ? 01/20/2021 TSH + Free ?
--- NOTE | 2021-05-31 10:29 | LDADM ---
This patient, Ashley Bosch, was admitted to OB Post 116 on 05/31/21 at 10:05. Plans for labor, pain management and were discussed with patient. Patient/family oriented to hospital policies and general routines including ID bracelet, bed and alarms, visiting hours, pain management, procedures, bathroom and other care routines, personal items, smoking policy, room service/diet and guest tray routines, infant security routines, and visiting hours. Patient/Family are encouraged to report perceived risks to care and to ask questions if they do not understand what they are told or what they should do. See OBIX for further documentation.
[2021-05-31] MEDS: LACTATED RINGERS 1,000 ML 125 ML IV CONT ×2 (11:00→11:49)
--- NOTE | 2021-05-31 11:01 | P.PNAN_ITS ---
Anes - Initial Pre Proc Eval Procedure: Operation Date: 05/31/21 12:00 Proposed Procedures p Section - Sam Monahan MD Date/Time: 05/31/21 11:01 Surgeon: Sam Monahan MD Pre Op Diagnosis: C/Section Patient Data Age: 30 Gender: F Height: 1.83 m Weight: 159 kg Allergies Allergy/AdvReac Type Severity Reaction Status Date / Time carbinoxamine [From [facility]] Allergy Hives Verified 10/07/19 01:53 pseudoephedrine [From [facility]] Allergy Hives Verified 10/07/19 01:53 sulfamethoxazole Allergy Hives Verified 08/29/19 21:06 [From [facility]] trimethoprim [From [facility]] Allergy Hives Verified 08/29/19 21:06 Home Medications Medication Instructions Recorded Confirmed Type 144 mcg PO DAILY 10/07/19 05/31/21 History budesonide-formoterol [Symbicort] 2 puff INHALATION Q12H 10/07/19 05/31/21 History cholecalciferol (vitamin D3) 50 mcg PO DAILY 10/07/19 05/31/21 History [Vitamin D3] levothyroxine 137 mcg PO DAILY 10/07/19 05/31/21 History Patient hx anesthesia problems: none Family hx anesthesia problems: none Results Review: All pre-operative results and documents have been reviewed as part of the pre-operative evaluation. [facility]LY [facility] Past Medical History Medical History Asthma Hypothyroid Family History Family History Sibling Asthma Mother Graves disease Social History Social History Smoking status: Never smoker Substance use: never Gender identity (if verbalized by the patient): Female Spiritual care concerns: No Anes - Eval Final PreProcedure Day of Procedure 05/31/21 11:01 Patient weight: morbidly obese Heart: regular rate and rhythm Lungs: clear to auscultation Airway: Mallampati scale class II Neurological: alert and oriented Last oral intake: >/= 8 hours ASA classification: III Emergent: no Anesthetic plan: proceed Anesthesia type and monitoring: regional spinal and standard monitoring Results Review: All pre-operative results and documents have been reviewed as part of the pre-operative evaluation. Informed Consent: The patient's anesthetic plan and its attendant risks and benefits were discussed with the patient/family/POA. Questions were solicited and answers provided to the satisfaction of the patient/family/POA.
[2021-05-31 11:05] LABS: Basophils Absolute Auto 0.1 K/mm3 (0.0-0.1); Basophils Percent Auto 0.5 % (0.2-1.2); Eosinophils Absolute Auto 0.4 K/mm3 (0-0.3); Eosinophils Percent Auto 3.2 % (0-4.4); Hematocrit 37.7 % (37.0-47.0); Hemoglobin 12.6 g/dL (12.0-15.0); Immature Granulocyte Absolute 0.06 K/mm3 (0.00-0.031); Immature Granulocyte Percent A 0.5 % (0-0.5); Lymphocytes Absolute Auto 2.32 K/mm3 (0.9-3.2); Lymphocytes Percent Auto 18.4 % (18.3-44.2); Mean Corpuscular HGB Conc 33.4 g/dl (32-36); Mean Corpuscular Hemoglobin 27.8 pg (26-34); Mean Corpuscular Volume 83.2 fl (80-100); Mean Platelet Volume 9.3 fl (7.4-10.4); Monocytes Percent Auto 7.5 % (2.6-8.5); Neutrophils Absolute Auto 8.8 K/mm3 (1.3-6.7); Neutrophils Percent Auto 69.9 % (45.5-73.1); Platelet Count Result 370 k/mm3 (150-375); Red Blood Count 4.53 M/mm3 (4.2-5.4); Red Cell Distribution Width 14.1 % (11.5-14.5); White Blood Count 12.6 K/mm3 (4.5-10.0)
--- NOTE | 2021-05-31 11:54 | WPDHPUPDATE1 ---
History and Physical Update Update Date/Time: 05/31/21 11:54 History and Physical has been reviewed, including an updated exam of the patient. There are NO changes in the patient's condition. Risks, benefits, and alternatives have been discussed and questions answered. Patient agrees to proceed with procedure.
--- NOTE | 2021-05-31 11:54 | PM.IMHP ---
H&P: HPI History of Present Illness Date/Time: 05/31/21 11:54 This patient is a 30-year-old multiparous female who presents for delivery at term. She has a in the breech presentation. A external cephalic version failed. She has no complaints. She denies any nausea, vomiting, fever, chills. She denies any loss of fluid, vaginal bleeding, contractions. She reports good movement. Denies any chest pain shortness of breath. Chief Complaint: Term Review of Systems Review of Systems: All systems reviewed & are unremarkable except as noted in HPI and below Constitutional: Constitutional: Denies chills, Denies fatigue, Denies fever(s) and Denies weakness Eyes: Eyes: Denies blurry vision, Denies change in vision, Denies loss of peripheral vision, Denies loss of vision, Denies other visual disturbances and Denies eye pain ENT: Denies vertigo, Denies dizziness, Denies hearing loss, Denies mouth pain, Denies nasal obstruction, Denies neck mass and Denies neck pain Cardiovascular: Cardiovascular: Denies chest pain, Denies diaphoresis, Denies syncope, Denies leg edema and Denies dyspnea Respiratory: Respiratory: Denies chest congestion, Denies cough, Denies hemoptysis, Denies dyspnea and Denies wheezing Gastrointestinal: Gastrointestinal: Denies abdominal pain, Denies constipation, Denies diarrhea, Denies nausea and Denies vomiting Genitourinary: Genitourinary: Denies hematuria, Denies change in libido, Denies nocturia, Denies genital lesions, Denies flank pain and Denies urinary urgency Musculoskeletal: Musculoskeletal: Denies abnormal gait, Denies back pain, Denies myalgias, Denies arthralgias, Denies joint swelling, Denies muscle weakness and Denies neck pain Integumentary/Breasts: Skin/Breast: Denies swelling, Denies breast pain, Denies breast mass, Denies dry skin, Denies nipple discharge, Denies unusual bruising and Denies jaundice Neurologic: Denies Neuro-related abnormal movements, Denies Abnormal speech present, Denies abnormal gait, Denies behavioral changes, Denies confusion, Denies vertigo, Denies dizziness, Denies syncope, Denies loss of vision, Denies memory loss, Denies convulsions and Denies weakness Psychiatric: Psychiatric: Denies abnormal sleep pattern, Denies behavioral changes, Denies change in libido, Denies confusion, Denies depression, Denies anhedonia and Denies memory loss Endocrine: Endocrine: Reports no additional endocrine complaints, Denies change in libido and Denies fatigue Hematologic/Lymphatic: Hematologic/Lymphatic: Reports no additional hematologic/lymphatic complaints Allergic/Immunologic: Allergic/Immunologic: Reports no additional allergic/immunologic complaints and Denies wheezing PMFSH Past Medical History Medical History Asthma Hypothyroid Family History Family History Sibling Asthma Mother Graves disease Social History Social History Smoking status: Never smoker Substance use: never Gender identity (if verbalized by the patient): Female Spiritual care concerns: No Meds Home Medications and Allergies Home Medications Medication Instructions Recorded Confirmed Type 144 mcg PO DAILY 10/07/19 05/31/21 History budesonide-formoterol [Symbicort] 2 puff INHALATION Q12H 10/07/19 05/31/21 History cholecalciferol (vitamin D3) 50 mcg PO DAILY 10/07/19 05/31/21 History [Vitamin D3] levothyroxine 137 mcg PO DAILY 10/07/19 05/31/21 History Allergies Allergy/AdvReac Type Severity Reaction Status Date / Time carbinoxamine [From [facility]] Allergy Hives Verified 10/07/19 01:53 pseudoephedrine [From [facility]] Allergy Hives Verified 10/07/19 01:53 sulfamethoxazole Allergy Hives Verified 08/29/19 21:06 [From Feb] trimethoprim [From ] Allergy Hives Verified 08/17
[2021-05-31] MEDS: ceFAZolin 3 GM/D5W 100 ML 100 ML IVPB (12:05)
--- NOTE | 2021-05-31 12:50 | W.PM.PROC2 ---
Procedure Note - Detailed Date of Procedure 05/31/21 Pre-op Diagnosis C/Section Post-op Diagnosis same Procedure Performed Low-transverse section Surgeon Sam Monahan MD Anesthesia spinal Findings Normal gestational maternal anatomy, average size , normal Apgars. Breech presentation Description of Procedure The patient was taken the operating room. She was prepped and draped in dorsal supine position with a leftward tilt. This was done after spinal anesthetic was applied. A low-transverse skin incision was made and carried down till of the fascia with the knife. The fascial incision was made with the knife. The fascial incision was extended laterally with Ann scissors. The fascia was tented upward superiorly and inferiorly the rectus muscles were dissected off bluntly. The rectus muscles were the midline. The preperitoneal fat and peritoneum were dissected open bluntly at the superior aspect of the rectus muscles. The peritoneal incision was extended superior and inferior with good position of bladder. The uterine incision was made with a scalpel down to the level of the amniotic cavity. The amniotic cavity was entered bluntly. The was delivered breech presentation 1st with reduction of the legs and arms and delivery of the head.. The cord was clamped and cut and the infant was handed off to waiting pediatric staff. Cord bloods were obtained. The placenta was removed manually. The uterus was exteriorized. The uterus was cleared of all clots, debris and membranes. The uterus was closed in 0 Vicryl running lock fashion. An imbricating over a was placed along the incision line as well. The uterus was returned to the abdomen. The gutters were cleared of all clots and debris. The fascia was closed with 0 Vicryl running fashion. The subcutaneous tissue was irrigated pinpoint bleeders were cauterized. The skin was closed with subcuticular absorbable farzad. The skin incision line was covered with glue. The patient tolerated the procedure well. She has taken recovery room in stable condition. Sponge lap and needle counts were correct x2. Estimated Blood Loss 565 Complications No immediate complications Condition stable Disposition PACU
[2021-05-31] MEDS: OXYTOCIN 30 UNITS/NS 500 ML 30 UNITS/500 ML BAG 125 UNITS IV CONT (14:13)
[2021-05-31] MEDS: diphenhydrAMINE HCl INJ 50 MG/ML VIAL 25 MG IV PUSH (15:11)
--- NOTE | 2021-05-31 15:16 | OBPPTRN ---
Patient transferred to post room #283 via stretcher. Support person present. Oriented to unit, room, information board, rooming in, admission packet and security measures. Patient verbalizes understanding.
[2021-05-31] MEDS: DEXTROSE 5%/0.45% SOD CHL 1,000 ML 125 ML IV CONT (18:20)
[2021-05-31] MEDS: IBUPROFEN 600 MG TABLET PO (18:43)
[2021-05-31] MEDS: FLUTICASONE/SALMETEROL 115-21 MCG INHALER 1 PUFF 2 PUFF INHALATION (19:30)
[2021-06-01] MEDS: IBUPROFEN 600 MG TABLET PO ×4 (00:38→20:01)
[2021-06-01] MEDS: DEXTROSE 5%/0.45% SOD CHL 1,000 ML 125 ML IV CONT (02:27)
[2021-06-01 05:00] VITALS: BP 133/69; PULSE 80; RESP 18; TEMP 36.6
[2021-06-01] MEDS: LEVOTHYROXINE SODIUM 25 MCG TABLET PO (05:12)
[2021-06-01] MEDS: LEVOTHYROXINE SODIUM 112 MCG TABLET PO (05:12)
[2021-06-01 05:20] LABS: Basophils Absolute Auto 0.1 K/mm3 (0.0-0.1); Basophils Percent Auto 0.6 % (0.2-1.2); Eosinophils Absolute Auto 0.5 K/mm3 (0-0.3); Eosinophils Percent Auto 3.6 % (0-4.4); Hematocrit 32.4 % (37.0-47.0); Hemoglobin 10.5 g/dL (12.0-15.0); Immature Granulocyte Absolute 0.05 K/mm3 (0.00-0.031); Immature Granulocyte Percent A 0.4 % (0-0.5); Lymphocytes Absolute Auto 2.86 K/mm3 (0.9-3.2); Lymphocytes Percent Auto 22.8 % (18.3-44.2); Mean Corpuscular HGB Conc 32.4 g/dl (32-36); Mean Corpuscular Hemoglobin 27.8 pg (26-34); Mean Corpuscular Volume 85.7 fl (80-100); Mean Platelet Volume 9.5 fl (7.4-10.4); Monocytes Absolute Auto 1.1 K/mm3 (0.1-0.6); Monocytes Percent Auto 8.8 % (2.6-8.5); Neutrophils Percent Auto 63.8 % (45.5-73.1); Platelet Count Result 312 k/mm3 (150-375); Red Blood Count 3.78 M/mm3 (4.2-5.4); Red Cell Distribution Width 14.3 % (11.5-14.5); White Blood Count 12.5 K/mm3 (4.5-10.0)
[2021-06-01 07:05] LABS: Rapid Plasma Reagin Non-Reactive (NonReactive)
--- NOTE | 2021-06-01 07:25 | WPDANLDNPN2 ---
Anes-Prog Note L&D-Neuraxial Date/Time: 06/01/21 07:25 Neuraxial medications: intrathecal PF morphine Opiod-related complaints: none Patient feedback: Patient satisfied with post-operative pain management.
--- NOTE | 2021-06-01 07:25 | WPDANLDPN2 ---
Anes-Prog Note L&D Date/Time: 06/01/21 07:25 Comfortable throughout: section Neuraxial method: spinal Epidural/Spinal procedure site: clean & non-tender Neuro status: Neuro function grossly intact. Cardiovascular status: normal Respiratory status: normal Airway patency: baseline Mental status: baseline Post-Op hydration status: normal Vital Signs: Last Vital Signs Temp 36.6 C 06/01/21 05:00 Pulse 80 06/01/21 05:00 Resp 18 06/01/21 05:00 BP 133/69 06/01/21 05:00 Pulse Ox 98 05/31/21 15:45 Pain score (VAS): 0 I/O: Intake & Output 05/31/21 05/31/21 06/01/21 15:59 23:59 07:59 Intake Total 2100 240 1750 Output Total 025 200 8533 Balance 1353 -260 750 Post-procedural complaints: none Patient feedback: Patient satisfied with anesthetic care.
[2021-06-01 07:50] VITALS: BP 119/62; PULSE 90; RESP 18; TEMP 36.4; O2SAT 97
--- NOTE | 2021-06-01 08:00 | PC.NURSE ---
Consult with pt., mother reports is eagerly feeding with without issue. This is mother?s 2nd child to breastfeed. Requested mother call out next feeding for observation per policy. Reviewed feeding cues, frequencies, duration of feedings, feeding elimination flow sheet, and signs of adequate intake. Demonstrated stimulation techniques to wake for feeding. Reviewed signs of a correct latch, effective nursing and suck swallow ratio. Nipple care reviewed of lanolin after feedings and warm compresses as needed. Instructed feeding should be initiated three hours from start of last feeding or if feeding cues are noted before. Mother voiced understanding of information shared.
[2021-06-01] MEDS: DOCUSATE SODIUM 100 MG CAPSULE PO ×2 (08:06→17:19)
[2021-06-01] MEDS: MULTIVIT/MIN/PREN/FOL AC/IRON TABLET 1 TAB PO (08:06)
--- NOTE | 2021-06-01 09:07 | P.PNOB_ITS ---
OB - PN: Subj Subjective Date/time seen: 06/01/21 09:07 Patient comments: no complaints, pain well controlled, tolerating diet and flatus present OB - PN: Obj Data Labs CBC & Chem 7: 06/01/21 04:30 Labs: Laboratory Results - last 24 hr 05/31/21 05/31/21 05/31/21 10:53 10:53 10:53 WBC 12.6 H RBC 4.53 Hgb 12.6 Hct 37.7 MCV 83.2 MCH 27.8 MCHC 33.4 RDW 14.1 Plt Count 370 MPV 9.3 Immature Gran % (Auto) 0.5 Neut % (Auto) 69.9 Lymph % (Auto) 18.4 [place] % (Auto) 7.5 Eos % (Auto) 3.2 Baso % (Auto) 0.5 Lymph # (Auto) 2.32 [place] # (Auto) 1.0 H Eos # (Auto) 0.4 H Baso # (Auto) 0.1 Abs Immat Gran (auto) 0.06 H Absolute Neuts (auto) 8.8 H Absolute Nucleated RBC 0.0 Nucleated RBC % 0.0 RPR Non-reactive Blood Type O Negative Antibody Screen Negative 06/01/21 04:30 WBC 12.5 H RBC 3.78 L Hgb 10.5 L Hct 32.4 L MCV 85.7 MCH 27.8 MCHC 32.4 RDW 14.3 Plt Count 312 MPV 9.5 Immature Gran % (Auto) 0.4 Neut % (Auto) 63.8 Lymph % (Auto) 22.8 [place] % (Auto) 8.8 H Eos % (Auto) 3.6 Baso % (Auto) 0.6 Lymph # (Auto) 2.86 [place] # (Auto) 1.1 H Eos # (Auto) 0.5 H Baso # (Auto) 0.1 Abs Immat Gran (auto) 0.05 H Absolute Neuts (auto) 8.0 H Absolute Nucleated RBC 0.0 Nucleated RBC % 0.0 RPR Blood Type Antibody Screen OB - PN A/P Plan day: 1 Comments: Post Op LTCS - no problems, routine recovery Time Spent With Patient Time: Total time spent is greater than 50% in coordination of care (as documented) at patient's floor/unit and/or counseling patient: Exam Const: General: cooperative, healthy appearing, comfortable and no acute distress Resp: Auscultation: no crackles, no rales, no rhonchi and no wheezes Cardio: Rhythm: regular rhythm Heart sounds: no click and no murmurs GI: Inspection: non-distended Auscultation: normal bowel sounds Extrem: General: normal to inspection, no pedal edema and no calf tenderness
[2021-06-01] MEDS: FLUTICASONE/SALMETEROL 115-21 MCG INHALER 1 PUFF 2 PUFF INHALATION ×2 (09:25→21:35)
[2021-06-01] MEDS: LORATADINE 10 MG TABLET PO (09:40)
[2021-06-01] MEDS: TRIAMCINOLONE ACET 0.5% OINT 15 GM TUBE 1 APPLIC TOPICAL ×3 (09:40→20:03)
--- NOTE | 2021-06-01 11:30 | PC.NURSE ---
Mother called out for assist with feeding. Infant is able to freely thrust tongue past gum ridge and flange both lips. Skin is intact on both nipples, no redness and bruising noted. Mother has latched deeply/correctly to breast in football positioning. Reviewed feeding cues, frequencies, duration of feedings, feeding elimination flow sheet, and signs of adequate intake. Demonstrated stimulation techniques to wake infant for feeding. Assisted with to breast. Reviewed positioning/alignment football, holding breast in ?C? hold and guided asymmetrical latch on. Reviewed rational for each. Infant nursed eagerly with steady draws and frequent swallowing noted, some pausing noted. Reviewed signs of a correct latch, effective nursing and suck swallow ratio. Suggested mother stimulate while feeding to increase stimulation for milk supply, for increased intake and to assist with maintaining deep latch. was able to maintain latch without discomfort to mother. Demonstrated how to adjust latch more deeply while feeding as needed. Nipple care reviewed of lanolin after feedings, warm compresses as needed. Instructed mother to call out for RN assistance if she is unable to latch for feeding or she has discomfort with nursing. Instructed feeding should be initiated three hours from start of last feeding or if feeding cues are noted before. Mother voiced understanding of information shared.
[2021-06-01 12:14] VITALS: BP 113/63; PULSE 74; RESP 18; TEMP 36.7; O2SAT 97
[2021-06-01] MEDS: ACETAMINOPHEN 325 MG TABLET 650 MG PO ×2 (17:19→23:54)
[2021-06-01 20:00] VITALS: BP 139/82; PULSE 92; RESP 16; TEMP 36.8
[2021-06-02] MEDS: IBUPROFEN 600 MG TABLET PO ×3 (01:33→15:58)
[2021-06-02] MEDS: HYDROcodone/acetaminophen (*CRX) 5-325 MG TABLET 1 TAB PO ×4 (04:36→15:57)
[2021-06-02] MEDS: LEVOTHYROXINE SODIUM 25 MCG TABLET PO (05:10)
[2021-06-02] MEDS: LEVOTHYROXINE SODIUM 112 MCG TABLET PO (05:11)
--- NOTE | 2021-06-02 07:43 | PM.OBPNVD ---
OB - PN: Subj Subjective Date/time seen: 06/02/21 07:43 Patient comments: no complaints baby status: doing well OB - PN: Obj Data Labs CBC & Chem 7: 06/01/21 04:30 OB - PN A/P Plan day: 2 Plan: routine care and discharge home Time Spent With Patient Time: Total time spent is greater than 50% in coordination of care (as documented) at patient's floor/unit and/or counseling patient: Review of Systems Review of Systems: All systems reviewed & are unremarkable except as noted in HPI and below Exam Const: General: cooperative, healthy appearing and comfortable
[2021-06-02 08:00] VITALS: BP 135/62; PULSE 84; RESP 18; TEMP 36.8
[2021-06-02] MEDS: SIMETHICONE 80 MG TAB.CHEW PO (08:48)
[2021-06-02] MEDS: DOCUSATE SODIUM 100 MG CAPSULE PO (08:49)
[2021-06-02] MEDS: LORATADINE 10 MG TABLET PO (08:49)
[2021-06-02] MEDS: MULTIVIT/MIN/PREN/FOL AC/IRON TABLET 1 TAB PO (08:49)
--- NOTE | 2021-06-02 10:15 | PC.NURSE ---
Consult with pt., observed mother is able to independently latch with appropriate positioning/alignment. Infant eagerly latches on first attempt with long rhythmical draws and frequent swallowing noted. She denies any nipple discomfort, is feeding as required and waking infant to feed if needed. Infant has had at least 8 effective feedings in the past 24 hours, and is currently meeting outcomes for weight, output, jaundice and feeding frequencies. Mother feels her milk is in, is sleeping well between feedings with less fussiness. Mother states she feels confident to continue effective at home. Reviewed transition to breast milk, signs of adequate intake, and engorgement/relief. Instructed to call ICP if intake/output less than required. Reviewed regular medications mother is taking. Information provided per Mattie. Reviewed community resources on the [facility] website and in the Mom/Baby guide. Information on outpatient services provided. Mother has no further questions at this time. Instructed feeding should be initiated three hours from start of last feeding or if feeding cues are noted before until seen by ICP. Mother voiced understanding of information shared.
--- NOTE | 2021-06-02 10:32 | PC.NURSE ---
Self care and infant care discharge instructions given including follow up visit date and time. Mother verbalized understanding. No questions or concerns voiced. Very pleasant and cooperative. FOB at side.
[2021-06-02] MEDS: FLUTICASONE/SALMETEROL 115-21 MCG INHALER 1 PUFF 2 PUFF INHALATION (10:42)
[2021-06-04 10:13] VITALS: BP 124/72; PULSE 81; RESP 20; TEMP 37.1; O2SAT 100
--- NOTE | 2021-07-11 17:09 | PM.OBDSVD ---
DS: Admitting Diagnosis Discharge Date 06/02/21 Admitting Diagnosis term , breech presentation DS: Discharge Diagnosis Discharge Diagnosis (1) delivery delivered: Code(s): O82 - Encounter for delivery without indication Status: Acute OB - DS: Summary OB Procedures : Ultrasound OB Procedures Intrapartum: OB Procedures: : None Peripartum Data Procedures: Procedures Operation Date: 05/31/21 12:00 Actual Procedure Side Surgeon p Section Sam Monahan MD Time Spent with Patient Time attestation: Total time spent providing and/or coordinating discharge services: Discharge Plan Discharge Attending physician on discharge: Sam Monahan Consulting providers: Shayla Hernandez ; Artemio Hutchison Discharging Clinician: Shayla Hernandez Patient Disposition: Home, Self-Care Activity: pelvic rest Diet: regular Discharge Instructions: Education: Mom and Baby Guide Given to: Mother Follow-Up: Call your delivering provider's office for an appointment to be seen in: 1 Week Mom and baby should come to the [facility] for the follow-up appointment. Appointment Date/Time: Friday, June 04, 2021 at 10:00 am What to expect at your follow-up visit: Blood Pressure Check Physical Assessment Call [phone] if you are unable to keep your appointment time. BREAST CARE: * Wear a snug supportive bra. * For engorgement discomfort: Breast Feeding: * Apply warm moist washcloths * Express milk as needed to relieve engorgement * Wear loose clothing * For sore nipples: * Identify correct latch-on * Apply warm moist washcloths before and after nursing * Air dry nipples after nursing * May apply Lansinoh cream to nipples ABDOMINAL INCISION: (if applicable) * Allow incision to air dry * Do NOT use lotions for powders on your incision * When showering, allow soap and water to run over the incision, but do not wash incision EPISIOTOMY/PERINEAL CARE: * Until bleeding stops, use your radha bottle after urinating * Change your pad frequently throughout the day * You may take sitz baths several times a day (fill your bathtub with warm water and soak for 20 minutes.) Do NOT bathe in the water * No tub baths until seen by your physician - You may shower ACTIVITY: * Rest as much as possible. * Do not exercise or lift anything heavier than your baby (such as laundry or other children.) * Avoid stairs or driving as much as possible. * Do not put anything into the vagina. No douching, tampons, or sexual activity until seen by physician. NOTIFY PHYSICIAN IF YOU HAVE ANY QUESTIONS OR IF ANY OF THE FOLLOWING SYMPTOMS OCCUR: * If your incision becomes red, swollen, or more painful than what you have experienced in the hospital. * If your vaginal bleeding becomes foul smelling. * If your vaginal bleeding becomes more heavy than a period or if your bleeding changes from pink to bright red. However, you may pass an occasional walnut-sized clot once or twice for the first week . * If you experience a sharp, shooting pain in you calves. * If you discover a hard, reddened area on your breast or if you experience flu-like symptoms. DIET: * Eat regular, well-balanced meals. * Drink plenty of fluids daily. If , drink to thirst. Patient Instructions: Antibiotic Form Stand Alone Forms: General Discharge Information Follow-up/Referrals: Shayla Hernandez CNM [Certified Nurse [employer]igo [employer]er] - 1 Week Discharge Medications: New hydrocodone-acetaminophen 5-325 mg Tablet 1 tablet PO Q3H PRN (Reason: Moderate Pain (4-6)) Qty: 20 RF: 0 Continued levothyroxine 137 mcg tablet 137 mcg PO DAILY RF: 0 budesonide-formoterol [Symbicort] 160-4.5 mcg/actuation Hfa Aerosol Inhaler 2 puff INHALATION Q12H RF: 0
== END 2021-06-02 16:21 | disposition home or self-care (01) | DRG 788 ==
LOC: ANHOBPP 10:12 → ANHOB2 15:30
PROVIDERS: Admitting Provider Obstetrics & Gynecology; PCP Nurse Practitioner; Visit Provider Obstetrics & Gynecology
PROC: 10D00Z1 Extraction of Products of Conception, Low, Open Approach (ICD-10-PCS; CPT 59514; principal; 2021-05-31 12:00)
DX: O32.1XX0 Maternal care for breech presentation, not applicable or unspecified (principal); O99.214 Obesity complicating childbirth; E66.01 Morbid (severe) obesity due to excess calories; Z3A.39 39 weeks gestation of pregnancy; Z37.0 Single live birth
CPT/HCPCS: 36415; 85025; 86592; 86850; 86900; 86901; 94640; A9270; J0131; J0690; J1200; J2274; J2370; J2590; J7120

== ENCOUNTER 2021-06-30 23:21 | Emergency (ER) | payer OTHER, BC, SELFPAY ==
--- NOTE | ~2021-06-30 | CT_ITS ---
EXAMINATION: CTA chest PE abdomen pel DATE: 07/01/2021 01:42 INDICATION: Chest pain. Upper abdominal pain. TECHNIQUE: Computed tomography angiography (CTA) of the chest was performed with 100 mL Omnipaque-350 intravenous contrast timed to evaluate the pulmonary arteries. Coronal maximum intensity projection 3D-reconstructions were created by the technologist. Computed tomography (CT) of the abdomen and pelv is was performed with intravenous contrast. Automated exposure control and iterative reconstruction t echnique were employed. The dose-length product was 2641.09 mGy-cm. COMPARISON: Thyroid ultrasound 06/08/2020 FINDINGS: CTA chest: The lungs demonstrate mild atelectasis. There is mosaic attenuation in the lungs, likely s mall airways disease. No pleural effusion. Cardiomegaly is noted. No pericardial effusion. There is n o pulmonary embolus. The thyroid is enlarged with heterogeneous attenuation, likely chronic lymphocyt ic ([place]) thyroiditis. CT abdomen and pelvis: There are 3.9 cm and 2.2 cm masses in the liver. The gallbladder is distended. No wall thickening. The spleen, pancreas, adrenal glands, and kidneys are normal. There are no dilat ed loops of bowel. The appendix is normal. There are no pathologically enlarged lymph nodes. There is no free intraperitoneal fluid. There is subcutaneous fat stranding at the recent section in [facility]. The bones are unremarkable. IMPRESSION: 1. Two liver masses with the larger measuring 3.9 cm, which may be benign or less likely malignant. A bdomen MRI without and with contrast is recommended. 2. Distended gallbladder, which may be secondary to fasting given the reported lack of tenderness on exam. 3. Cardiomegaly. 4. Mosaic attenuation in the lungs, likely small airways disease. Reviewed, dictated and finalized at location B. O STYLIST IMPRESSION: 1. Two liver masses with the larger measuring 3.9 cm, which may be benign or le ss likely malignant. Abdomen MRI without and with contrast is recommended. 2. Distended gallbladder, which may be secondary to fasting given the reported lack of tenderness on exam. 3. Cardiomegaly. 4. Mosaic attenuation in the lungs, likely small airways disease.
--- NOTE | ~2021-06-30 | XR_ITS ---
EXAMINATION: XR chest 2V DATE: 06/30/2021 23:48 INDICATION: Chest and upper back pain TECHNIQUE: PA and lateral views of the chest are obtained. COMPARISON: 12/23/2015 FINDINGS: The lungs are free of acute opacities. There is no pleural effusion or pneumothorax. The ca rdiomediastinal silhouette is normal. The visualized bones and soft tissues are unremarkable. IMPRESSION: 1. No acute cardiopulmonary abnormality. Reviewed, dictated and finalized at location F. ONS ENGINEER
--- NOTE | 2021-06-30 23:26 | ECG_ITS ---
Measurements Intervals [place] Rate: 88 P: 56 OR: 136 QRS: 77 QRSD: 110 T: 49 QT: 355 QTc: 432 Interpretive Statements SINUS RHYTHM MINIMAL Q WAVES- INFERIOR LEADS BORDERLINE ECG Electronically Signed On 07-01-2021 6:06:57 NETWORK MANAGEMENT SPECIALIST by Adi Yu D.O.
[2021-06-30 23:39] VITALS: BP 149/90; PULSE 100; RESP 18; TEMP 36.1; O2SAT 96
[2021-06-30 23:44] LABS: Basophils Absolute Auto 0.1 K/mm3 (0.0-0.1); Basophils Percent Auto 0.6 % (0.2-1.2); Eosinophils Absolute Auto 0.5 K/mm3 (0-0.3); Eosinophils Percent Auto 3.5 % (0-4.4); Hematocrit 39.7 % (37.0-47.0); Hemoglobin 12.7 g/dL (12.0-15.0); Immature Granulocyte Absolute 0.06 K/mm3 (0.00-0.031); Immature Granulocyte Percent A 0.4 % (0-0.5); Lymphocytes Absolute Auto 2.32 K/mm3 (0.9-3.2); Mean Corpuscular Hemoglobin 26.7 pg (26-34); Mean Corpuscular Volume 83.4 fl (80-100); Mean Platelet Volume 9.3 fl (7.4-10.4); Monocytes Absolute Auto 0.9 K/mm3 (0.1-0.6); Monocytes Percent Auto 5.6 % (2.6-8.5); Neutrophils Absolute Auto 11.6 K/mm3 (1.3-6.7); Neutrophils Percent Auto 74.9 % (45.5-73.1); Platelet Count Result 442 k/mm3 (150-375); Red Blood Count 4.76 M/mm3 (4.2-5.4); Red Cell Distribution Width 13.8 % (11.5-14.5); White Blood Count 15.4 K/mm3 (4.5-10.0)
[2021-07-01] LABS: INR 0.9; Prothrombin Time 12.5 Seconds (11.1-14.7)
[2021-07-01 00:01] LABS: Alanine Aminotransferase 57 U/L (4-35); Albumin Level 4.5 g/dL (3.5-5.1); Alkaline Phosphatase 135 U/L (38-126); Anion Gap 10 mmol/L (8-16); Aspartate Amino Transferase 95 U/L (14-36); Bilirubin,Total 0.5 mg/dL (0.2-1.3); Blood Urea Nitrogen 21 mg/dL (7-17); Calcium 9.1 mg/dL (8.4-10.2); Carbon Dioxide 27 mmol/L (22-30); Chloride 100 mmol/L (98-107); Estimated CRCL calculation 117 ml/min; Estimated Glomerular Filt Rate > 60; Glucose 137 mg/dL (65-110); Lipase 70 U/L (23-300); Potassium 3.9 mmol/L (3.4-5.0); Sodium 137 mmol/L (137-145)
[2021-07-01 00:10] LABS: Troponin I < 0.012 ng/mL (0.000-0.034)
[2021-07-01 00:40] VITALS: BP 133/99; PULSE 99; RESP 18; O2SAT 97
[2021-07-01 00:44] VITALS: BP 133/99; PULSE 82; PULSE 83; RESP 18; O2SAT 97; O2SAT 98
--- NOTE | 2021-07-01 01:26 | PC.NURSE ---
Pt to imaging at this time.
[2021-07-01 02:34] VITALS: BP 157/82; PULSE 88; RESP 20; O2SAT 97
--- NOTE | 2021-07-01 02:51 | ED.GENADULT ---
HPI - General Adult General Chief complaint: Chest Pain Stated complaint: chest pain post-op Time Seen by Provider: 07/01/21 00:35 History of Present Illness HPI narrative: Patient is a 30-year-old female who presents to emergency department chief complaint of chest pain radiating to the back. The patient reports that she recently had a reports that she started having a sharp-like pain in her chest reports that she had no coughing no fever no abdominal pain patient reports that symptoms or not improved by anything or they worsened by. Patient reports no COVID exposure. Related Data Home Medications Medication Instructions Recorded Confirmed 144 mcg PO DAILY 10/07/19 05/31/21 budesonide-formoterol [Symbicort] 2 puff INHALATION Q12H 10/07/19 05/31/21 cholecalciferol (vitamin D3) 50 mcg PO DAILY 10/07/19 05/31/21 [Vitamin D3] levothyroxine 137 mcg PO DAILY 10/07/19 05/31/21 Allergies Allergy/AdvReac Type Severity Reaction Status Date / Time carbinoxamine [From Rondec] Allergy Hives Verified 07/01/21 00:47 pseudoephedrine [From Rondec] Allergy Hives Verified 07/01/21 00:47 sulfamethoxazole Allergy Hives Verified 07/01/21 00:47 [From Septra] trimethoprim [From Septra] Allergy Hives Verified 07/01/21 00:47 Review of Systems Review of Systems: A 10 system review of systems was completed on the patient and is negative except for what is stated in the HPI. Nursing and ancillary documentation was reviewed. PMFSH Past Medical History Medical History Asthma Hypothyroid Family History Family History Sibling Asthma Mother Graves disease Social History Social History Smoking status: Never smoker Substance use: never Gender identity (if verbalized by the patient): Female Spiritual care concerns: No Exam Narrative: GENERAL: Well-appearing, well-nourished, and in no acute distress. HEAD: Normocephalic, atraumatic. EYES: PERRLA and EOMI. ENT: Nares clear, no rhinorrhea or epistaxis. Mucous membranes moist. NECK: Supple. CHEST: Clear to auscultation. No respiratory distress. HEART: Regular rate and rhythm. No murmur heard. Normal peripheral pulses. ABDOMEN: Soft, nontender, nondistended, normal active bowel sounds. EXTREMITIES: Normal range of motion. No edema. SKIN: Warm, dry, no rash. NEURO: No focal deficits. Alert and oriented x3. PSYCH: Normal mood and affect. Course Course Emergency Course: EKG is sinus rhythm rate of [address] elevation or ST depression Chest x-ray is read as negative CTA of the chest shows no evidence of bronchitis without evidence of pulmonary embolism. CT of the abdomen pelvis showed no evidence of acute abnormality Vital Signs Vital signs: Vital Signs Temperature 36.1 C L 06/30/21 23:39 Pulse Rate 100 06/30/21 23:39 Respiratory Rate 18 06/30/21 23:39 Blood Pressure 149/90 H 06/30/21 23:39 Pulse Oximetry 96 06/30/21 23:39 Temperature 36.1 C L 06/30/21 23:39 Pulse Rate 88 07/01/21 02:34 Respiratory Rate 20 07/01/21 02:34 Blood Pressure 157/82 H 07/01/21 02:34 Pulse Oximetry 97 07/01/21 02:34 Medical Decision Making Vital Signs Vital Signs: Vital Signs Temperature 36.1 C L 06/30/21 23:39 Pulse Rate 100 06/30/21 23:39 Respiratory Rate 18 06/30/21 23:39 Blood Pressure 149/90 H 06/30/21 23:39 Pulse Oximetry 96 06/30/21 23:39 Temperature 36.1 C L 06/30/21 23:39 Pulse Rate 88 07/01/21 02:34 Respiratory Rate 20 07/01/21 02:34 Blood Pressure 157/82 H 07/01/21 02:34 Pulse Oximetry 97 07/01/21 02:34 Lab Data Result diagrams: 06/30/21 23:39 06/30/21 23:39 Labs: Lab Results 06/30/21 06/30/21 06/30/21 Range/Units 23:39 23:39 23:39 WBC 15.4 H (4.5-10.0
[2021-07-01 03:27] VITALS: BP 150/68; PULSE 87; RESP 16; O2SAT 98
[2021-07-01 03:40] LABS: Troponin I < 0.012 ng/mL (0.000-0.034)
== END 2021-07-01 03:30 | disposition home or self-care (01) ==
PROVIDERS: Emergency Provider Emergency Medicine; PCP Nurse Practitioner
DX: R07.89 Other chest pain (principal); J45.909 Unspecified asthma, uncomplicated; E03.9 Hypothyroidism, unspecified
CPT/HCPCS: 36415; 71046; 71275; 74177; 80053; 81025; 83690; 84484; 85025; 85610; 85730; 93005; 99284; Q9967

== ENCOUNTER 2021-07-08 09:28 | Outpatient (CLI) | payer OTHER, BC, SELFPAY ==
[2021-07-08 09:45] LABS: Basophils Absolute Auto 0.1 K/mm3 (0.0-0.1); Basophils Percent Auto 0.6 % (0.2-1.2); Eosinophils Absolute Auto 0.7 K/mm3 (0-0.3); Hematocrit 40.6 % (37.0-47.0); Hemoglobin 12.9 g/dL (12.0-15.0); Immature Granulocyte Absolute 0.05 K/mm3 (0.00-0.031); Immature Granulocyte Percent A 0.4 % (0-0.5); Lymphocytes Absolute Auto 1.93 K/mm3 (0.9-3.2); Lymphocytes Percent Auto 13.9 % (18.3-44.2); Mean Corpuscular HGB Conc 31.8 g/dl (32-36); Mean Corpuscular Hemoglobin 26.7 pg (26-34); Mean Corpuscular Volume 84.1 fl (80-100); Mean Platelet Volume 9.1 fl (7.4-10.4); Monocytes Absolute Auto 0.8 K/mm3 (0.1-0.6); Monocytes Percent Auto 5.8 % (2.6-8.5); Neutrophils Absolute Auto 10.3 K/mm3 (1.3-6.7); Neutrophils Percent Auto 74.3 % (45.5-73.1); Platelet Count Result 388 k/mm3 (150-375); Red Blood Count 4.83 M/mm3 (4.2-5.4); Red Cell Distribution Width 14.4 % (11.5-14.5); White Blood Count 13.9 K/mm3 (4.5-10.0)
[2021-07-08 09:55] LABS: Alanine Aminotransferase 51 U/L (4-35); Albumin Level 4.3 g/dL (3.5-5.1); Alkaline Phosphatase 120 U/L (38-126); Anion Gap 10 mmol/L (8-16); Aspartate Amino Transferase 28 U/L (14-36); Bilirubin,Total 0.5 mg/dL (0.2-1.3); Blood Urea Nitrogen 16 mg/dL (7-17); Calcium 9.7 mg/dL (8.4-10.2); Carbon Dioxide 26 mmol/L (22-30); Chloride 102 mmol/L (98-107); Estimated Glomerular Filt Rate > 60; Glucose 100 mg/dL (65-110); Potassium 4.4 mmol/L (3.4-5.0); Sodium 138 mmol/L (137-145)
== END 2021-07-08 09:29 | disposition home or self-care (01) ==
PROVIDERS: PCP Nurse Practitioner; Visit Provider Nurse Practitioner
DX: R79.89 Other specified abnormal findings of blood chemistry (principal); D72.829 Elevated white blood cell count, unspecified
CPT/HCPCS: 36415; 80053; 85025